=== PATIENT | female | born 1990 | race African-American/Black ===

== ENCOUNTER → 2017-08-12 | Day surgery (SDC) | payer OTHER | LOC: BICULT 11:57 | PROVIDERS: ATTEND Family Medicine | DX: N63.11 Unspecified lump in the right breast, upper outer quadrant (principal) ==

== ENCOUNTER 2018-06-27 18:48 | Emergency (ER) | payer OTHER | END 2018-06-27 19:43 | disposition home or self-care (01) | LOC: SCSER 18:48 | DX: K05.10 Chronic gingivitis, plaque induced (principal); F17.210 Nicotine dependence, cigarettes, uncomplicated; Z79.899 Other long term (current) drug therapy | CPT/HCPCS: 99282 ==

== ENCOUNTER 2018-12-29 23:50 | Emergency (ER) | payer SELFPAY | END 2018-12-30 00:22 | disposition home or self-care (01) | LOC: SCSER 23:50 | DX: J06.9 Acute upper respiratory infection, unspecified (principal); J20.9 Acute bronchitis, unspecified; F17.210 Nicotine dependence, cigarettes, uncomplicated | CPT/HCPCS: 99283 ==

== ENCOUNTER 2019-03-09 21:31 | Emergency (ER) | payer SELFPAY ==
[2019-03-09] MEDS ORDERED: Adacel (T-DAP) 0.5 ML SYRINGE ONE (22:04)
== END 2019-03-09 22:29 | disposition home or self-care (01) ==
LOC: SCSER 21:31
DX: S61.032A Puncture wound without foreign body of left thumb without damage to nail, initial encounter (principal); F17.210 Nicotine dependence, cigarettes, uncomplicated; W26.0XXA Contact with knife, initial encounter
CPT/HCPCS: 90471; 90715